=== PATIENT | male | born 1980 | race Two or more races ===

== ENCOUNTER 2022-11-12 18:21 | Emergency (ER) | payer OTHER ==
[~2022-11-12] VITALS: Ht 170.2 cm; Wt 48.5 kg
[~2022-11-12 18:21] MED LIST: ASPIR-LOW81 MG PO
[2022-11-12] MEDS ORDERED: XOPENEX CO1.25 MG/0. IH (21:48)
[2022-11-12] MEDS ORDERED: BUDESONIDE0.5 MG/2 M IH (21:48)
[2022-11-12] MEDS ORDERED: MUCINEX D ER 11 EACH PO (21:48)
== END 2022-11-12 21:54 | disposition home or self-care (01) ==
LOC: ER 18:21
DX: B34.9 Viral infection, unspecified (principal); J98.11 Atelectasis; J18.9 Pneumonia, unspecified organism